=== PATIENT | female | born 1965 | race Caucasian/White ===

== ENCOUNTER → 2017-01-05 | Outpatient (CLI) | payer OTHER ==
--- NOTE | 2017-01-05 17:05 | CT ---
EXAMINATION: CT sinuses HISTORY: Congestion COMPARISON: None TECHNIQUE: Axial CT images obtained through the paranasal sinuses without contrast. Coronal and sagi ttal reconstructions obtained. FINDINGS: The maxillary, frontal, and sphenoid sinuses are patent. The frontoethmoidal and sphenoeth moidal recesses are clear. The ostiomeatal complexes are clear. No air-fluid levels or bony destruct ion. The facial bones appear intact. Bone mineralization is normal. There is slight rightward deviat ion of the nasal septum. The nasal passages otherwise clear. The temporomandibular joints appear nor mal. The orbits and globes are symmetric. The mastoid air cells and middle ears are clear. IMPRESSION: 1. No significant paranasal sinus disease identified.
== END ==
LOC: MW.DI 13:57
PROVIDERS: ATTEND Nurse Practitioner Adult Health
DX: J32.9 Chronic sinusitis, unspecified (principal); R09.81 Nasal congestion
CPT/HCPCS: 70487; 70487-26

== ENCOUNTER 2019-10-14 11:19 | Emergency (ER) | payer OTHER ==
[2019-10-14 12:16] VITALS: BP 147/71; PULSE 80
--- NOTE | 2019-10-14 12:29 | EDM.PDOC ---
ED HPI GENERAL MEDICAL PROBLEM - General Chief Complaint: Lower Extremity Injury/Pain Stated Complaint: INJURED LT FOOT Time Seen by Provider: 10/14/19 12:13 Source of Information: Reports: Patient History Limitations: Reports: No Limitations - History of Present Illness INITIAL COMMENTS - FREE TEXT/NARRATIVE: HISTORY AND PHYSICAL: History of present illness: Patient is a 54-year-old female who presents to the emergency room with complaints of left foot pain. She states that she missed a step yesterday and had landed her foot "funny". Since that time she has had mid foot pain into the base of great toe. She has been ambulatory and able to weight-bear although this does increase her discomfort. Denies any other extremity involvement. Offers no systemic complaints. Review of systems: As per history of present illness and below otherwise all systems reviewed and negative. Past medical history: As per history of present illness and as reviewed below otherwise noncontributory. Surgical history: As per history of present illness and as reviewed below otherwise noncontributory. Social history: See social history for further information Family history: As per history of present illness and as reviewed below otherwise noncontributory. Physical exam: General: Well-developed and well-nourished 54-year-old female. Alert and oriented. Nontoxic-appearing and in no acute distress. HEENT: Atraumatic, normocephalic, pupils equal and reactive bilaterally, negative for conjunctival pallor or scleral icterus, mucous membranes moist, trachea midline. No drooling or trismus noted. No meningeal signs. No hot potato voice noted. Lungs: Clear to auscultation, breath sounds equal bilaterally, chest nontender. Heart: S1S2, regular rate and rhythm without overt murmur Skin: Intact, warm, dry. No lesions or rashes noted. Extremities: Pain with palpation to base of left great toe into midfoot. She moves all extremities per self without difficulty or deficits, negative for cords or calf pain. Strong pedal and pretibial pulse. Neurovascular unremarkable. Neuro: Awake, alert, oriented. Cranial nerves II through XII unremarkable. Cerebellum unremarkable. Motor and sensory unremarkable throughout. Exam nonfocal. Notes: X-ray shows no acute findings. I will give her crutches to be nonweightbearing. We discussed following up with podiatry. Did offer her some nonnarcotic pain medication but she states she is fine with Tylenol and ibuprofen. Supportive care measures were reviewed and discussed. Voices understanding and is agreeable to plan of care. Denies any further questions or concerns at this time. Diagnostics: X-ray Therapeutics: Crutches Prescription: None Impression: Foot injury, left Plan: 1. Rest, ice, elevate the affected extremity. Please use crutches over the next 1-3 days to be non-weight bearing. 2. Tylenol and/or Ibuprofen as needed for pain management. 3. Follow up with the Orthopedic provider or Religious Education Coordinator as we discussed. Return to the ED as needed and as discussed. Definitive disposition and diagnosis as appropriate pending reevaluation and review of above. Left Foot Pain Score (Numeric/FACES): 4 - Related Data Allergies Allergy/AdvReac Type Severity Reaction Status Date / Time No Known Allergies Allergy Verified 10/14/19 12:06 Home Meds: Home Meds Atenolol [Tenormin] 25 mg PO ASDIRECTED 10/14/19 [History] Past Medical History HEENT History: Reports: Impaired Vision Other HEENT History: wears glasses Cardiovascular History: Reports: Other (See Below) Other Cardiovascular History: SVT Respiratory History: Reports: None Gastrointestinal History: Reports: GERD, Hiatal Hernia Genitourinary History: Reports: Renal Calculus CLINICAL REVIEW SPECIALIST History: Reports: Endometriosis Musculoskeletal History: Reports: Fracture Neurological History: Reports: None Psychiatric History: Reports: Anxiety Endocrine/Metabolic History: Reports: Obesity/BMI 30+ Hematologic History: Reports: None Immunologic History: Reports: None Oncologic (Cancer) History: Reports: Cervix Dermatologic History: Reports: None - Infectious Disease History Infectious Disease History: Reports: None - Past Surgical History Head Surgeries/Procedures: Reports: None HEENT Surgical History: Reports: None Cardiovascular Surgical History: Reports: None Respiratory Surgical History: Reports: None Female Surgical History: Reports: Cervical Cryotherapy, Hysterectomy, Other ( See Below) Endocrine Surgical History: Reports: None Neurological Surgical History: Reports: None Musculoskeletal Surgical History: Reports: None Oncologic Surgical History: Reports: Other (See Below) Dermatological Surgical History: Reports: None Social & Family History - Family History Family Medical History: Noncontributory - Tobacco Use Smoking Status *Q: Current Every Day Smoker Years of Tobacco use: 34 Packs/Tins Daily: 0.5 - Caffeine Use Caffeine Use: Reports: Coffee - Recreational Drug Use Recreational Drug Use: No Review of Systems - Review of Systems Review Of Systems: Comprehensive ROS is negative, except as noted in HPI. ED EXAM, GENERAL - Physical Exam Exam: See Below (See dictation) Course - Vital Signs Last Recorded V/S: Last Vital Signs Temp 98.7 F 10/14/19 12:08 Pulse 80 10/14/19 12:08 Resp 16 10/14/19 12:08 BP 147/71 H 10/14/19 12:08 Pulse Ox 100 10/14/19 12:08 - Orders/Labs/Meds Orders: Active Orders 24 hr Category Date Time Status DME for Discharge [COMM] Stat Oth 10/14/19 12:56 Ordered Departure - Departure Time of Disposition: 12:58 Disposition: Home, Self-Care 01 Clinical Impression: Foot injury Qualifiers: Encounter type: initial encounter Laterality: left Qualified Code(s): S99.922A - Unspecified injury of left foot, initial encounter - Discharge Information Referrals: Cole Honeycutt MD [Primary Care Provider] - Forms: ED Department Discharge Additional Instructions: The following information is given to patients seen in the emergency department who are being discharged to home. This information is to outline your options for follow-up care. We provide all patients seen in our emergency department with a follow-up referral. The need for follow-up, as well as the timing and circumstances, are variable depending upon the specifics of your emergency department visit. If you don't have a primary care physician on staff, we will provide you with a referral. We always advise you to contact your personal physician following an emergency department visit to inform them of the circumstance of the visit and for follow-up with them and/or the need for any referrals to a consulting specialist. The emergency department will also refer you to a specialist when appropriate. This referral assures that you have the opportunity for follow-up care with a specialist. All of these measure are taken in an effort to provide you with optimal care, which includes your follow-up. Under all circumstances we always encourage you to contact your private physician who remains a resource for coordinating your care. When calling for follow-up care, please make the office aware that this follow-up is from your recent emergency room visit. If for any reason you are refused follow-up, please contact the [facility] Emergency Department at and asked to speak to the emergency department charge nurse. [facility] [address] [place] [address] [facility] [address] [place] [address] 1. Rest, ice, elevate the affected extremity. Please use crutches over the next 1-3 days to be non-weight bearing. 2. Tylenol and/or Ibuprofen as needed for pain management. 3. Follow up with the Orthopedic provider or Religious Education Coordinator as we discussed. Return to the ED as needed and as discussed. Sepsis Event Note - Evaluation Sepsis Screening Result: No Definite Risk - Focused Exam Vital Signs: Vital Signs Temp Pulse Resp BP Pulse Ox 10/14/19 12:08 98.7 F 80 16 147/71 H 100 Date Exam was Performed: 10/14/19 Time Exam was Performed: 12:59 - My Orders Last 24 Hours: My Active Orders 10/14/19 12:56 DME for Discharge [COMM] Stat - Assessment/Plan Last 24 Hours: My Active Orders 10/14/19 12:56 DME for Discharge [COMM] Stat
--- NOTE | 2019-10-14 12:54 | CR ---
Left foot: 2 views left foot were obtained. Comparison: No previous study. Sclerotic medial edge of the navicular bone is seen which is felt to be normal variant. Minimal spur is noted at the attachment of the Achilles tendon to the calcaneus. No acute fracture or other abnormality is appreciated. Impression: 1. Findings as described above. 2. Nothing acute is appreciated on 2 view left foot exam. Diagnostic code #2 This report was dictated in Mountain Standard Time
== END 2019-10-14 13:15 | disposition home or self-care (01) ==
LOC: MW.ED 11:19
DX: S99.922A Unspecified injury of left foot, initial encounter (principal); E66.9 Obesity, unspecified; Z68.31 Body mass index [BMI] 31.0-31.9, adult; W10.9XXA Fall (on) (from) unspecified stairs and steps, initial encounter
CPT/HCPCS: 73620-26-LT; 73620-LT; 99283-25

== ENCOUNTER 2021-07-26 14:27 | Emergency (ER) | payer OTHER ==
[2021-07-26 14:48] VITALS: PULSE 65
--- NOTE | 2021-07-26 15:44 | EDM.PDOC ---
ED HPI GENERAL MEDICAL PROBLEM - General Chief Complaint: Upper Extremity Injury/Pain Stated Complaint: THUMB ON R HAND CUT OPEN Time Seen by Provider: 07/26/21 15:36 Source of Information: Reports: Patient History Limitations: Reports: No Limitations - History of Present Illness INITIAL COMMENTS - FREE TEXT/NARRATIVE: HISTORY AND PHYSICAL: History of present illness: Patient is a 56-year-old female who presents to the emergency room with complaints of a laceration to the dorsal aspect of her right thumb. She states she was helping her daughter having a metal shelf when she "somehow cut myself". She has good flexion and extension of the thumb. Denies any other extremity involvement. Patient denies any fever, chills, headache, change in vision, syncope or near syncope. Denies any chest pain, back pain, shortness of breath or cough. Denies any GI or symptoms. No recent travel or sick contacts. Unsure of her last tetanus update. Review of systems: As per history of present illness and below otherwise all systems reviewed and negative. Past medical history: As per history of present illness and as reviewed below otherwise noncontributory. Surgical history: As per history of present illness and as reviewed below otherwise noncontributory. Social history: See social history for further information Family history: As per history of present illness and as reviewed below otherwise noncontributory. Physical exam: General: Well developed and well nourished 56-year-old female. Alert and orientated x 3. Nontoxic in appearance and in no acute distress. Vital signs are stable and have been reviewed by me. Nursing notes were reviewed. HEENT: Atraumatic, normocephalic, pupils equal and reactive bilaterally, negative for conjunctival pallor or scleral icterus, mucous membranes moist, TMs normal bilaterally, throat clear, neck supple, nontender, trachea midline. No drooling or trismus noted. No meningeal signs. No hot potato voice noted. Lungs: Clear to auscultation bilaterally. No wheezes, rales, or rhonchi. Chest nontender. Normal work of breathing, no accessory muscles used. Heart: S1S2, regular rate and rhythm without overt murmur, gallops, or rubs. No JVD. No peripheral edema Abdomen: Soft, nondistended, nontender. Skin: 2 cm "C" shaped laceration to the distal aspect of right thumb below the nailbed. Remaining skin is intact, warm, dry. No lesions or rashes noted. Hematologic: No petechiae or purpra. Mucosa appropriate color and normal nail bed color and refill. Extremities: See skin for details, moves all extremities per self without difficulty or deficits, laceration does not involve the nailbed. Good flexion and extension of the finger. Cap refill less than 2 seconds.. Neurovascular unremarkable. Neuro: Awake, alert, oriented. Cranial nerves II through XII unremarkable. Cerebellum unremarkable. Motor and sensory unremarkable throughout. Exam nonfocal. Psychiatric: Mood and affect are appropriate. Normal thought process. Answering questions appropriately. Please note that the patient was seen and evaluated during the 2019 SARS-CoV-2 novel coronavirus pandemic period. Community viral transmission is ongoing at time of this encounter and the emergency department is operating under pandemic response procedures. Medical Decision Makin% lidocaine was used to anesthetize the area. Usual and customary procedures were followed for suture placement. 4-0 nylon, #5 interrupted sutures were placed. Bacitracin nonstick dressing applied. Tetanus has been updated. No concern for needing imaging at this time. I have talked with the patient about today's findings, in addition to providing specific details for plan of care. Reassessment at the time of disposition demonstrates that the patient is in no acute distress. The patient is stable for discharge, counseling was provided and we discussed in great detail signs and symptoms that would prompt them to return to the Emergency Department. Medication, follow up and supportive care measures were reviewed and discussed. Voices understanding and is agreeable to plan of care. Denies any further questions or concerns at this time. Diagnostics: None Therapeutics: Tdap, 1% lidocaine, bacitracin, wound care Prescription: None Impression: Laceration Plan: 1. Keep the area clean and dry. Continue to monitor for signs of infection. Sutures to be removed in 7-10 days. 2. Tylenol and/or ibuprofen as needed for pain management. 3. Please follow-up with your primary care provider for suture removal, or return if you are unable to schedule an appointment. If your symptoms should worsen, new symptoms develop or any of the signs and symptoms we discussed should arise please return to the emergency room or call 911 (if needed). Definitive disposition and diagnosis as appropriate pending reevaluation and review of above. Right Finger-Thumb Pain Score (Numeric/FACES): 4 - Related Data Allergies Allergy/AdvReac Type Severity Reaction Status Date / Time No Known Allergies Allergy Verified 07/26/21 14:47 Home Meds: Home Meds . 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 Musculoskeletal History: Reports: Fracture Neurological History: Reports: None Psychiatric History: Reports: Anxiety Endocrine/Metabolic History: Reports: Obesity/BMI 30+ Hematologic History: Reports: None Immunologic History: Reports: None Oncologic (Cancer) History: Reports: Cervix Dermatologic History: Reports: None - Infectious Disease History Infectious Disease History: Reports: None - Past Surgical History Head Surgeries/Procedures: Reports: None HEENT Surgical History: Reports: None Cardiovascular Surgical History: Reports: None Respiratory Surgical History: Reports: None GI Surgical History: Reports: None Female Surgical History: Reports: Cervical Cryotherapy, Hysterectomy, Other (See Below) Other Female Surgeries/Procedures: laparoscopy Endocrine Surgical History: Reports: None Neurological Surgical History: Reports: None Musculoskeletal Surgical History: Reports: None Oncologic Surgical History: Reports: Other (See Below) Other Oncologic Surgeries/Procedures: cervical cryotherapy Dermatological Surgical History: Reports: None Social & Family History - Family History Family Medical History: No Pertinent Family History - Tobacco Use Second Hand Smoke Exposure: No - Caffeine Use Caffeine Use: Reports: None - Recreational Drug Use Recreational Drug Use: No Review of Systems - Review of Systems Review Of Systems: Comprehensive ROS is negative, except as noted in HPI. ED EXAM, GENERAL - Physical Exam Exam: See Below (See dictation) ED TRAUMA EXTREMITY PROCEDURES - Laceration/Wound Repair Right thumb Lac/Wound Length In cm: 2 Appearance: Subcutaneous, Irregular, Clean Distal NVT: Neuro & Vascular Intact, No Tendon Injury Anesthetic Type: Local Local Anesthesia - Lidocaine (Xylocaine): 1% Plain Local Anesthetic Volume: 1cc Skin Prep: Chlorhexidine (Hibiciens), Saline, Sterile Drape Saline Irrigation (cc's): 250 Exploration/Debridement/Repair: Wound Explored, In a Bloodless Field, Explored to Base, No Foreign Material Found Closed With: Sutures Suture Size: 4-0 # of Sutures: 5 Suture Type: Nylon, Interrupted, Simple Drain Placement: No Sterile Dressing Applied: Provider Tetanus Status Addressed: Yes Complications: No Course - Vital Signs Last Recorded V/S: Last Vital Signs Temp 96.6 F L 07/26/21 14:44 Pulse 65 07/26/21 14:44 Resp 20 07/26/21 14:44 BP 134/63 07/26/21 14:44 Pulse Ox 99 07/26/21 14:44 - Orders/Labs/Meds Orders: Active Orders 24 hr Category Date Time Status Vaccine to be Administered/Admin Charge [RC] ASDIRECTED Care 07/26/21 15:45 Active Meds: Medications Discontinued Medications Generic Name Dose Route Start Last Admin Trade Name Freq PRN Reason Stop Dose Admin Bacitracin 1 dose 07/26/21 15:45 07/26/21 16:02 Bacitracin Oint 1 Gm U/D Packet TOP 07/26/21 15:46 1 dose ONETIME ONE Administration Diphtheria/Tetanus/Acell Pertussis 0.5 ml 07/26/21 15:45 07/26/21 16:06 Diphtheria,Pertussis(Acell),Tetanus Vaccine 0.5 Ml Syringe IM 07/26/21 15:46 0.5 ml .ONCE ONE Administration Lidocaine HCl 2 ml 07/26/21 15:45 07/26/21 16:03 Lidocaine 1% Pf 2 Ml Sdv INJECT 07/26/21 15:46 2 ml ONETIME ONE Administration Departure - Departure Time of Disposition: 16:05 Disposition: Home, Self-Care 01 Clinical Impression: Laceration - Discharge Information Instructions: Laceration Care, Adult, [id number] Referrals: Cole Honeycutt MD [Primary Care Provider] - Forms: ED Department Discharge Additional Instructions: The following information is given to patients seen in the emergency department who are being discharged to home. This information is to outline your options for follow-up care. We provide all patients seen in our emergency department with a follow-up referral. The need for follow-up, as well as the timing and circumstances, are variable depending upon the specifics of your emergency department visit. If you don't have a primary care physician on staff, we will provide you with a referral. We always advise you to contact your personal physician following an emergency department visit to inform them of the circumstance of the visit and for follow-up with them and/or the need for any referrals to a consulting specialist. The emergency department will also refer you to a specialist when appropriate. This referral assures that you have the opportunity for follow-up care with a specialist. All of these measure are taken in an effort to provide you with optimal care, which includes your follow-up. Under all circumstances we always encourage you to contact your private physician who remains a resource for coordinating your care. When calling for follow-up care, please make the office aware that this follow-up is from your recent emergency room visit. If for any reason you are refused follow-up, please contact the [facility] Emergency Department at and asked to speak to the emergency department charge nurse. [facility] [address] [place] [address] [place] [address] Thank you for choosing the [facility] emergency department in [place] for your medical needs today. It was a pleasure caring for you. Today you were seen in the emergency department for laceration of finger. 1. Keep the area clean and dry. Continue to monitor for signs of infection. Sutures to be removed in 7-10 days. 2. Tylenol and/or ibuprofen as needed for pain management. 3. Please follow-up with your primary care provider for suture removal, or return if you are unable to schedule an appointment. If your symptoms should worsen, new symptoms develop or any of the signs and symptoms we discussed should arise please return to the emergency room or call 911 (if needed). Sepsis Event Note (ED) - Evaluation Sepsis Screening Result: No Definite Risk - Focused Exam Vital Signs: Vital Signs Temp Pulse Resp BP Pulse Ox 07/26/21 14:44 96.6 F L 65 20 134/63 99 - My Orders Last 24 Hours: My Active Orders 07/26/21 15:45 Vaccine to be Administered/Admin Charge [RC] ASDIRECTED - Assessment/Plan Last 24 Hours: My Active Orders 07/26/21 15:45 Vaccine to be Administered/Admin Charge [RC] ASDIRECTED
[2021-07-26] MEDS ORDERED: Diphtheria,Pertussis(Acell),Tetanus Vaccine 0.5 ML Syringe IM ONE (15:45)
[2021-07-26] MEDS ORDERED: Lidocaine 1% PF 2 ML SDV INJECT ONE (15:45)
[2021-07-26] MEDS ORDERED: Bacitracin Oint 1 GM U/D Packet TOP ONE (15:45)
[2021-07-26 17:41] VITALS: BP 147/81
== END 2021-07-26 16:20 | disposition home or self-care (01) ==
LOC: MW.ED 14:27
DX: S61.011A Laceration without foreign body of right thumb without damage to nail, initial encounter (principal); E66.9 Obesity, unspecified; Z68.30 Body mass index [BMI] 30.0-30.9, adult; Z23 Encounter for immunization; W26.8XXA Contact with other sharp object(s), not elsewhere classified, initial encounter
CPT/HCPCS: 12001; 90471; 90715; 99282-25

== ENCOUNTER 2022-07-23 07:48 | Day surgery (SDC) | payer OTHER ==
[~2022-07-23 07:48] MED LIST: Midazolam 1 MG/ML 2 ML SDV ONE; Propofol 200 MG/20 ML SDV ONE
[2022-07-23] MEDS ORDERED: Lactated Ringers 1,000 ML IV SCH (09:00)
[2022-07-23 10:04] VITALS: BP 135/63; PULSE 56
== END 2022-07-23 10:06 | disposition home or self-care (01) ==
LOC: MW.SDS 07:48
PROVIDERS: ATTEND Surgery
DX: K21.9 Gastro-esophageal reflux disease without esophagitis (principal); K44.9 Diaphragmatic hernia without obstruction or gangrene; E78.00 Pure hypercholesterolemia, unspecified; F17.210 Nicotine dependence, cigarettes, uncomplicated; F41.9 Anxiety disorder, unspecified; E66.9 Obesity, unspecified; I49.9 Cardiac arrhythmia, unspecified; Z68.36 Body mass index [BMI] 36.0-36.9, adult; Z88.1 Allergy status to other antibiotic agents; Z88.2 Allergy status to sulfonamides; Z79.899 Other long term (current) drug therapy; Z98.890 Other specified postprocedural states; Z90.710 Acquired absence of both cervix and uterus
CPT/HCPCS: 43239; J2250; J2704; J7120; 00731